=== PATIENT | female | born 1950 | race African-American/Black ===

== ENCOUNTER 2019-01-01 04:44 | Day surgery (SDC) | payer OTHER ==
[2018-12-26 16:40] VITALS: BMI 22.8
--- NOTE | 2019-01-01 03:19 | HP ---
History & Physical Update - History History: No Change - Physical Physical: No Change - Assessment Assessment: No Change - Plan Plan: No Change (No change in HP 12/26/18)
[~2019-01-01 04:44] MED LIST: ACETAMINOPHEN 325 MG TABLET (FP) PO PRN; IBUPROFEN 400 MG TABLET (FP) PO PRN
[2019-01-01] MEDS ORDERED: PROPOFOL 20 ML ONE (07:40)
[2019-01-01] MEDS ORDERED: MIDAZOLAM HCL 2 MG/2 ML SINGLE DOSE VIAL ONE (07:41)
--- NOTE | 2019-01-01 09:08 | OP ---
Operative Note - Note: Operative Date: 01/01/19 Pre-Operative Diagnosis: POstmenopausal bleeding. endometrial polyp Operation: Hysteroscopic myomectomy. SUction DC Findings: Endometrial polyp submucosal myoma Post-Operative Diagnosis: Same as Pre-op Anesthesia: General Estimated Blood Loss (mls): 20 Operative Report Dictated: Yes
--- NOTE | 2019-01-01 09:28 | OP ---
DATE OF OPERATION: 01/01/2019 PREOPERATIVE DIAGNOSIS: Postmenopausal bleeding, endometrial hyperplasia, endometrial polyp. OPERATION: Hysteroscopic myomectomy, suction dilation and curettage. POSTOPERATIVE DIAGNOSIS: Postmenopausal bleeding, endometrial hyperplasia, endometrial polyp. SURGEON: Penny Pandey MD ANESTHESIA: General. DESCRIPTION OF PROCEDURE: Patient was taken to the operating room. Placed in dorsal lithotomy position. Prepped and draped in the usual sterile fashion. A time-out was performed in accordance with hospital regulation. Speculum was placed in the vagina. Anterior lip of the cervix was grasped with a single-tooth tenaculum. Cervix was then dilated to accommodate the operative hysteroscope. Diagnostic hysteroscopy was done. Visualization revealed endometrial polyp. Cautery and cutting of the endometrial polyp was done. Specimen was then submitted to Pathology. Suction dilation and curettage was then done. Anterior aspect of the uterus noted to have a type 2 submucous myoma. Cutting of the myoma was done and submitted to Pathology by suction dilation and curettage. Hemostasis was achieved. All instruments were then removed. Patient tolerated procedure well. Estimated blood loss 20 mL. PENNY PANDEY M.D. [id number]
[2019-01-01] MEDS ORDERED: ONDANSETRON 4 MG/2 ML VIAL IVPUSH PRN (09:31)
[2019-01-01] MEDS ORDERED: oxyCODONE HCL 5 MG TABLET PO PRN (09:31)
[2019-01-01] MEDS ORDERED: LACTATED RINGERS SOLUTION 1,000 ML IV SCH (09:45)
[2019-01-01 10:36] VITALS: TEMP 97.6
[2019-01-01 13:28] VITALS: BP 144/76; PULSE 79
--- NOTE | 2019-01-02 18:04 | PATH ---
Surgical Pathology Report Patient Name: DAVID CANTRELL [facility]. Rec. #: [id number] /Age/Gender: 1950 (Age: 68) / F Account: [id number] Location: [facility] SURGICAL Taken: 01/01/2019 Received: 01/01/2019 Reported: 01/02/2019 Physicians: Penny Pandey M.D. Specimen(s) Received A: ENDOMETRIUM POLYP B: ENDOMETRIAL CURETTINGS Clinical History Submucosal myoma Final Diagnosis A. ENDOMETRIAL POLYP, EXCISION: PORTIONS OF ENDOMETRIAL POLYP. B. ENDOMETRIAL CURETTINGS: ONE FRAGMENT OF ENDOMETRIAL POLYP. SEPARATE SCANTY STROMAL TISSUE. Electronically Signed Jas Smith M.D. Gross Description A. Received in formalin, labeled "endometrial polyp" are two marquez, irregular portions of soft tissue measuring 0.5 cm. in greatest dimension. The specimens are submitted in toto in one cassette. B. Received in formalin, labeled "endometrial curettings" are multiple small portions of soft tissue admixed with mucus measuring 0.3 x 0.3 x 0.2 cm in aggregate. The specimens are submitted in toto in 1 cassette. KWS/01/01/2019 sulki/01/01/2019
== END 2019-01-01 12:00 | disposition home or self-care (01) ==
LOC: JASU-SURG 04:44
PROVIDERS: ATTEND Obstetrics & Gynecology
PROC: 0UJD8ZZ Inspection of Uterus and Cervix, Via Natural or Artificial Opening Endoscopic (ICD-10-PCS; 2019-01-01)
PROC: 0UB97ZX Excision of Uterus, Via Natural or Artificial Opening, Diagnostic (ICD-10-PCS; principal; 2019-01-01 08:00)
PROC: 0UDB7ZX Extraction of Endometrium, Via Natural or Artificial Opening, Diagnostic (ICD-10-PCS; 2019-01-01 08:00)
DX: N95.0 Postmenopausal bleeding (principal); N84.0 Polyp of corpus uteri; I10 Essential (primary) hypertension; E11.9 Type 2 diabetes mellitus without complications; Z79.84 Long term (current) use of oral hypoglycemic drugs
CPT/HCPCS: 82962; 88305-TC; 94760

== ENCOUNTER 2023-05-02 04:19 | Day surgery (SDC) | payer OTHER ==
[2023-04-28 10:05] VITALS: BMI 23.0
[2023-05-02] MEDS ORDERED: LIDOCAINE 1%/EPI 1:100000 (20 ML MULTI DOSE VIAL) ONE (11:53)
[2023-05-02] MEDS ORDERED: GENTAMICIN SO4 80 MG/2 ML VIAL ONE (11:54)
[2023-05-02] MEDS ORDERED: DEXAMETHASONE SOD PHOSPHATE 4 MG/1 ML VIAL ONE (12:18)
[2023-05-02] MEDS ORDERED: KETOROLAC TROMETHAMINE 30 MG/1 ML VIAL ONE (12:18)
[2023-05-02] MEDS ORDERED: ONDANSETRON 4 MG/2 ML VIAL ONE ×2 (12:18→14:05)
[2023-05-02] MEDS ORDERED: ceFAZolin SODIUM 1 GM VIAL ONE (12:18)
[2023-05-02] MEDS: GENTAMICIN SO4 80 MG/2 ML VIAL IVPB ONE (12:23)
[2023-05-02] MEDS: LIDOCAINE 1%/EPI 1:100000 (20 ML MULTI DOSE VIAL) IJ ONE (12:23)
[2023-05-02] MEDS: ceFAZolin SODIUM 1 GM VIAL IVPB ONE (12:23)
[2023-05-02] MEDS: BACITRACIN ZINC 15 GM TUBE TOPICAL OINTMENT TP ONE (12:29)
[2023-05-02] MEDS ORDERED: oxyCODONE HCL 5 MG TABLET PO PRN (12:50)
[2023-05-02] MEDS ORDERED: LACTATED RINGERS SOLUTION 1,000 ML IV SCH (13:00)
[2023-05-02] MEDS: ONDANSETRON 4 MG/2 ML VIAL IVPUSH ONE (14:08)
[2023-05-02 14:42] VITALS: RESP 18; TEMP 97.1
[2023-05-02 15:30] VITALS: BP 123/62; PULSE 68
== END 2023-05-02 16:00 | disposition home or self-care (01) ==
LOC: JASU-SURG 04:19
PROVIDERS: ATTEND Urology
PROC: 0TQD7ZZ Repair Urethra, Via Natural or Artificial Opening (ICD-10-PCS; principal; 2023-05-02 11:00)
DX: N39.3 Stress incontinence (female) (male) (principal)
CPT/HCPCS: 57240; C1771; 82962; 94760